=== PATIENT | male | born 1935 | race Hispanic/Latino ===

== ENCOUNTER 2020-12-25 11:48 | Inpatient (IN) | payer MEDICARE ==
[~2020-12-25] VITALS: Ht 167.6 cm; Wt 95.3 kg
[2020-12-25 12:53] LABS: BASOPHILS % 0.4 % (0.0-1.0); EOSINOPHILS % 0.3 % (0.0-6.0); HEMATOCRIT 44.4 % (38.2-49.6); HEMOGLOBIN 14.5 g/dL (14.0-18.0); LYMPHOCYTES # (AUTO) 1.4 (1.0-3.2); LYMPHOCYTES % 18.6 % (18.0-39.1); MEAN CORPUSCULAR HEMOGLOBIN 29.8 pg (28-32); MEAN CORPUSCULAR HGB CONC 32.7 g/dL (31-35); MEAN CORPUSCULAR VOLUME 91.4 fL (81-99); MONOCYTES # (AUTO) 0.5 (0.2-0.8); NEUTROPHILS # (AUTO) 5.6 (2.1-6.9); NEUTROPHILS % 74.3 % (38.7-80.0); PLATELET COUNT 207 x10e3/uL (140-360); RED BLOOD COUNT 4.86 x10e6/uL (4.3-5.7); RED CELL DISTRIBUTION WIDTH 14.7 % (11.7-14.4)
[2020-12-25] MEDS ORDERED: DILTIAZEM HCL 5 MG/ML 5 ML VIAL IV STA ×4 (13:10→16:18)
[2020-12-25] MEDS ORDERED: DIGOXIN INJ 0.25 MG/ML 2 ML AMP IV ONE (13:15)
[2020-12-25 13:17] LABS: ALBUMIN 3.3 g/dL (3.5-5.0); ALBUMIN/GLOBULIN RATIO 0.8 (0.8-2.0); ANION GAP 15.9 mmol/L (8-16); CALCIUM 8.4 mg/dL (8.4-10.2); CREATININE, SERUM 1.52 mg/dL (0.72-1.25); POTASSIUM 3.9 mmol/L (3.5-5.1)
[2020-12-25 13:24] LABS: CREATINE KINASE MB 2.5 ng/mL (0-5.0)
[2020-12-25] MEDS ORDERED: SODIUM CHLORIDE 0.9% 50ML 50 ML ONE (13:43)
[2020-12-25] MEDS ORDERED: IOPAMIDOL 370 MG/ML 200 ML INFUS..BTL INJ ONE (13:43)
[2020-12-25] MEDS ORDERED: ENOXAPARIN SODIUM INJ 100 MG/ML SYR SC SCH (16:00)
[2020-12-25] MEDS: FUROSEMIDE INJ 10 MG/ML 4 ML VIAL IV SCH (16:34)
[2020-12-25] MEDS ORDERED: CLONIDINE HCL 0.2 MG TAB PO PRN (17:15)
[2020-12-25 17:36] VITALS: BP 168/113
[2020-12-25] MEDS: CARVEDILOL 12.5 MG TAB PO SCH (17:46)
[2020-12-25 20:00] VITALS: BP 141/76
[2020-12-25 20:48] VITALS: BP 128/102
[2020-12-25] MEDS ORDERED: TEMAZEPAM 15 MG CAP PO PRN (21:00)
[2020-12-25 21:04] LABS: CREATINE KINASE MB 3.3 ng/mL (0-5.0)
[2020-12-26] MEDS: FUROSEMIDE INJ 10 MG/ML 4 ML VIAL IV SCH ×2 (05:11→18:00)
[2020-12-26 07:04] LABS: BASOPHILS % 0.4 % (0.0-1.0); EOSINOPHILS # (AUTO) 0.1 (0.0-0.4); EOSINOPHILS % 1.3 % (0.0-6.0); HEMATOCRIT 40.3 % (38.2-49.6); HEMOGLOBIN 13.3 g/dL (14.0-18.0); LYMPHOCYTES # (AUTO) 1.3 (1.0-3.2); LYMPHOCYTES % 23.7 % (18.0-39.1); MEAN CORPUSCULAR HEMOGLOBIN 29.8 pg (28-32); MEAN CORPUSCULAR VOLUME 90.2 fL (81-99); MONOCYTES # (AUTO) 0.4 (0.2-0.8); MONOCYTES % 6.7 % (4.4-11.3); NEUTROPHILS # (AUTO) 3.6 (2.1-6.9); NEUTROPHILS % 67.5 % (38.7-80.0); PLATELET COUNT 174 x10e3/uL (140-360); RED BLOOD COUNT 4.47 x10e6/uL (4.3-5.7); RED CELL DISTRIBUTION WIDTH 14.6 % (11.7-14.4)
[2020-12-26 07:35] LABS: ALBUMIN/GLOBULIN RATIO 0.9 (0.8-2.0); ANION GAP 15.4 mmol/L (8-16); CALCIUM 7.7 mg/dL (8.4-10.2); POTASSIUM 3.4 mmol/L (3.5-5.1)
[2020-12-26 07:46] VITALS: BP 115/91
[2020-12-26 07:46] LABS: CREATININE, SERUM 1.56 mg/dL (0.72-1.25)
[2020-12-26 08:00] VITALS: BP 115/91
[2020-12-26 08:18] LABS: CREATINE KINASE MB 3.1 ng/mL (0-5.0)
[2020-12-26] MEDS: ENOXAPARIN SODIUM INJ 100 MG/ML SYR SC SCH (09:22)
[2020-12-26] MEDS: CARVEDILOL 12.5 MG TAB PO SCH ×2 (09:22→20:23)
[2020-12-26] MEDS ORDERED: ACETAMINOPHEN 325 MG TAB PO PRN (10:45)
[2020-12-26] MEDS ORDERED: POTASSIUM CHLORIDE 20 MEQ TAB CR PO ONE (11:00)
[2020-12-26 11:38] VITALS: BP 102/80
[2020-12-26 15:52] VITALS: BP 108/80
[2020-12-26 19:44] LABS: ANION GAP 19.7 mmol/L (8-16); CALCIUM 7.9 mg/dL (8.4-10.2); CREATININE, SERUM 1.74 mg/dL (0.72-1.25); POTASSIUM 3.7 mmol/L (3.5-5.1)
[2020-12-26 20:00] VITALS: BP_SYST 101; BP_SYST 124; BP_DIAS 76; BP_DIAS 87
[2020-12-27 04:00] VITALS: BP 111/86
[2020-12-27] MEDS: FUROSEMIDE INJ 10 MG/ML 4 ML VIAL IV SCH ×2 (05:27→17:19)
[2020-12-27 06:53] LABS: ALBUMIN 2.9 g/dL (3.5-5.0); ALBUMIN/GLOBULIN RATIO 0.8 (0.8-2.0); ANION GAP 16.2 mmol/L (8-16); CHOL/HDL RATIO 5.3 (3.9-4.7); CREATININE, SERUM 1.55 mg/dL (0.72-1.25); POTASSIUM 3.2 mmol/L (3.5-5.1)
[2020-12-27 07:09] LABS: THYROID STIMULATING HORMONE 1.977 uIU/mL (0.350-4.940)
[2020-12-27] MEDS ORDERED: POTASSIUM CHLORIDE 20 MEQ TAB CR PO ONE ×2 (09:43→10:19)
[2020-12-27] MEDS: ENOXAPARIN SODIUM INJ 100 MG/ML SYR SC SCH (10:27)
[2020-12-27] MEDS: CARVEDILOL 12.5 MG TAB PO SCH ×2 (10:28→21:58)
[2020-12-27 20:00] VITALS: BP 93/64
[2020-12-27 21:56] VITALS: BP 109/77
[2020-12-27 22:00] VITALS: BP 109/77
[2020-12-28] VITALS: BP 104/83
[2020-12-28 04:00] VITALS: BP 116/90
[2020-12-28 05:54] LABS: BASOPHILS % 0.5 % (0.0-1.0); EOSINOPHILS # (AUTO) 0.1 (0.0-0.4); EOSINOPHILS % 1.2 % (0.0-6.0); HEMATOCRIT 41.5 % (38.2-49.6); HEMOGLOBIN 13.9 g/dL (14.0-18.0); LYMPHOCYTES # (AUTO) 1.4 (1.0-3.2); LYMPHOCYTES % 25.3 % (18.0-39.1); MEAN CORPUSCULAR HEMOGLOBIN 29.8 pg (28-32); MEAN CORPUSCULAR HGB CONC 33.5 g/dL (31-35); MEAN CORPUSCULAR VOLUME 89.1 fL (81-99); MONOCYTES # (AUTO) 0.4 (0.2-0.8); MONOCYTES % 7.1 % (4.4-11.3); NEUTROPHILS # (AUTO) 3.7 (2.1-6.9); NEUTROPHILS % 65.5 % (38.7-80.0); PLATELET COUNT 164 x10e3/uL (140-360); RED BLOOD COUNT 4.66 x10e6/uL (4.3-5.7); RED CELL DISTRIBUTION WIDTH 14.3 % (11.7-14.4)
[2020-12-28 06:13] LABS: ANION GAP 14.3 mmol/L (8-16); CALCIUM 7.6 mg/dL (8.4-10.2); CREATININE, SERUM 1.46 mg/dL (0.72-1.25); POTASSIUM 3.3 mmol/L (3.5-5.1)
[2020-12-28] MEDS: FUROSEMIDE INJ 10 MG/ML 4 ML VIAL IV SCH (06:24)
[2020-12-28 07:50] VITALS: BP 113/87
[2020-12-28 08:00] VITALS: BP 113/87
[2020-12-28] MEDS: ENOXAPARIN SODIUM INJ 100 MG/ML SYR SC SCH (08:53)
[2020-12-28] MEDS: CARVEDILOL 12.5 MG TAB PO SCH (08:53)
[2020-12-28] MEDS ORDERED: POTASSIUM CHLORIDE 20 MEQ TAB CR PO ONE (09:59)
[2020-12-28 11:17] VITALS: BP 109/78
[2020-12-28 12:54] LABS: ANION GAP 14.7 mmol/L (8-16); CALCIUM 7.9 mg/dL (8.4-10.2); CREATININE, SERUM 1.47 mg/dL (0.72-1.25); POTASSIUM 3.7 mmol/L (3.5-5.1)
[2020-12-28 15:37] VITALS: BP 123/91
[2020-12-28] MEDS ORDERED: FUROSEMIDE40 MG PO (16:14)
[2020-12-28] MEDS ORDERED: K DUR10 MEQ PO (16:14)
[2020-12-28] MEDS ORDERED: XARELTO15 MG PO (16:14)
[2020-12-28] MEDS ORDERED: XARELTO10 MG PO (16:14)
[2020-12-28] MEDS ORDERED: COREG12.5 MG PO (16:14)
[2020-12-28] MEDS ORDERED: RIVAROXABAN 15 MG TABLET PO SCH (17:00)
[2020-12-28] MEDS ORDERED: FUROSEMIDE 40 MG TAB PO SCH (18:00)
[2020-12-29] MEDS ORDERED: POTASSIUM CHLORIDE 10MEQ EA PO SCH (09:00)
[2021-01-18] MEDS ORDERED: RIVAROXABAN 20 MG TABLET PO SCH (17:00)
== END 2020-12-28 18:48 | disposition home or self-care (01) | DRG 175 ==
LOC: ER 12:22 → ERHOLD 15:43 → MED/SURG3 16:49
PROVIDERS: ADMIT Internal Medicine; ATTEND Internal Medicine
DX: I26.99 Other pulmonary embolism without acute cor pulmonale (principal); I50.23 Acute on chronic systolic (congestive) heart failure; I13.0 Hypertensive heart and chronic kidney disease with heart failure and stage 1 through stage 4 chronic kidney disease, or unspecified chronic kidney disease; I48.20 Chronic atrial fibrillation, unspecified; Z20.822 Contact with and (suspected) exposure to COVID-19; E66.01 Morbid (severe) obesity due to excess calories; I34.0 Nonrheumatic mitral (valve) insufficiency; N18.32 Chronic kidney disease, stage 3b; E87.6 Hypokalemia; T50.B95A Adverse effect of other viral vaccines, initial encounter; Z68.33 Body mass index [BMI] 33.0-33.9, adult
CPT/HCPCS: 36415; 71260; 76770; 80048; 80053; 80061; 82550; 82553; 83735; 83880; 84443; 84484; 85025; 93005; 93306; 93970; 99251; 99284; J1160; J1650; J1940; Q9967; U0002

== ENCOUNTER → 2021-01-22 | Outpatient (CLI) | payer MEDICARE ==
[~2021-01-22] MED LIST: COREG12.5 MG PO; FUROSEMIDE40 MG PO; K DUR10 MEQ PO; XARELTO10 MG PO; XARELTO15 MG PO
== END ==
LOC: RAD 12:02
PROVIDERS: ATTEND Internal Medicine
DX: R06.02 Shortness of breath (principal); R06.2 Wheezing
CPT/HCPCS: 71046

== ENCOUNTER 2021-11-26 14:23 | Inpatient (IN) | payer MEDICARE ==
[~2021-11-26] VITALS: Ht 167.6 cm; Wt 95.3 kg
[2021-11-26] MEDS ORDERED: FUROSEMIDE INJ 10 MG/ML 4 ML VIAL IV ONE (14:45)
[2021-11-26] MEDS ORDERED: ASPIRIN 81 MG CHEW TAB PO ONE ×2 (14:45→16:45)
[2021-11-26 15:07] LABS: BASOPHILS % 0.4 % (0.0-1.0); EOSINOPHILS % 0.3 % (0.0-6.0); HEMATOCRIT 42.8 % (38.2-49.6); LYMPHOCYTES # (AUTO) 1.4 (1.0-3.2); LYMPHOCYTES % 19.1 % (18.0-39.1); MEAN CORPUSCULAR HEMOGLOBIN 31.1 pg (28-32); MEAN CORPUSCULAR HGB CONC 32.7 g/dL (31-35); MEAN CORPUSCULAR VOLUME 95.1 fL (81-99); MONOCYTES # (AUTO) 0.5 (0.2-0.8); MONOCYTES % 6.4 % (4.4-11.3); NEUTROPHILS # (AUTO) 5.3 (2.1-6.9); NEUTROPHILS % 73.4 % (38.7-80.0); PLATELET COUNT 205 x10e3/uL (140-360); RED CELL DISTRIBUTION WIDTH 16.3 % (11.7-14.4)
[2021-11-26 15:17] LABS: INR 1.06; PROTHROMBIN TIME 14.8 seconds (11.9-14.5)
[2021-11-26 15:27] LABS: ALBUMIN 3.1 g/dL (3.5-5.0); ALBUMIN/GLOBULIN RATIO 0.8 (0.8-2.0); ANION GAP 16.2 mmol/L (8-16); CREATININE, SERUM 1.54 mg/dL (0.72-1.25); POTASSIUM 4.2 mmol/L (3.5-5.1)
[2021-11-26 15:33] LABS: CREATINE KINASE MB 2.2 ng/mL (0-5.0)
[2021-11-26] MEDS ORDERED: ONDANSETRON HCL INJ 2MG/ML 2ML 2 MG/ML VIAL IV PRN (16:45)
[2021-11-26] MEDS ORDERED: SODIUM CHLORIDE FLUSH 10 ML SYR INJ PRN (16:45)
[2021-11-26 21:30] VITALS: BP_SYST 144; BP_SYST 159; BP_DIAS 100; BP_DIAS 105
[2021-11-27] VITALS (7 sets, daily range): BP systolic 125–148; BP diastolic 86–103
[2021-11-27 01:39] LABS: CREATINE KINASE MB 1.7 ng/mL (0-5.0)
[2021-11-27 05:33] LABS: BASOPHILS % 0.5 % (0.0-1.0); EOSINOPHILS % 0.6 % (0.0-6.0); HEMOGLOBIN 13.6 g/dL (14.0-18.0); LYMPHOCYTES # (AUTO) 1.5 (1.0-3.2); LYMPHOCYTES % 23.3 % (18.0-39.1); MEAN CORPUSCULAR HEMOGLOBIN 30.4 pg (28-32); MEAN CORPUSCULAR HGB CONC 31.6 g/dL (31-35); MONOCYTES # (AUTO) 0.5 (0.2-0.8); MONOCYTES % 8.1 % (4.4-11.3); NEUTROPHILS # (AUTO) 4.3 (2.1-6.9); NEUTROPHILS % 67.2 % (38.7-80.0); PLATELET COUNT 177 x10e3/uL (140-360); RED BLOOD COUNT 4.48 x10e6/uL (4.3-5.7); RED CELL DISTRIBUTION WIDTH 16.3 % (11.7-14.4)
[2021-11-27 05:45] LABS: ANION GAP 15.8 mmol/L (8-16); CALCIUM 8.7 mg/dL (8.4-10.2); CREATININE, SERUM 1.47 mg/dL (0.72-1.25); POTASSIUM 3.8 mmol/L (3.5-5.1)
[2021-11-27] MEDS ORDERED: ONDANSETRON HCL 4 MG ORAL DISINTEGRATING TAB PO PRN (07:00)
[2021-11-27 09:09] LABS: CREATINE KINASE MB 2.2 ng/mL (0-5.0)
[2021-11-27] MEDS: FUROSEMIDE INJ 10 MG/ML 4 ML VIAL IV SCH (09:52)
[2021-11-27] MEDS: CARVEDILOL 3.125 MG TAB PO SCH ×2 (09:52→17:23)
[2021-11-27] MEDS: RIVAROXABAN 20 MG TABLET PO SCH (17:23)
[2021-11-28] VITALS (7 sets, daily range): BP systolic 114–140; BP diastolic 81–97
[2021-11-28 07:14] LABS: HEMATOCRIT 40.5 % (38.2-49.6); HEMOGLOBIN 13.2 g/dL (14.0-18.0); MEAN CORPUSCULAR HEMOGLOBIN 30.9 pg (28-32); MEAN CORPUSCULAR HGB CONC 32.6 g/dL (31-35); MEAN CORPUSCULAR VOLUME 94.8 fL (81-99); PLATELET COUNT 147 x10e3/uL (140-360); RED BLOOD COUNT 4.27 x10e6/uL (4.3-5.7); RED CELL DISTRIBUTION WIDTH 15.9 % (11.7-14.4)
[2021-11-28 07:39] LABS: ANION GAP 13.5 mmol/L (8-16); CALCIUM 8.3 mg/dL (8.4-10.2); CREATININE, SERUM 1.4 mg/dL (0.72-1.25); POTASSIUM 3.5 mmol/L (3.5-5.1)
[2021-11-28] MEDS: CARVEDILOL 3.125 MG TAB PO SCH ×2 (09:07→17:28)
[2021-11-28] MEDS: FUROSEMIDE INJ 10 MG/ML 4 ML VIAL IV SCH (09:07)
[2021-11-28 12:01] LABS: EOSINOPHILS % (MANUAL) 3 % (0-7); LYMPHOCYTES % (MANUAL) 16 % (19-48); MONOCYTES % (MANUAL) 4 % (3.4-9.0); NEUTROPHILS % (MANUAL) 77 % (40-74); PLATELET ESTIMATE SLIGHTLY DECREASED; PLATELET MORPHOLOGY COMMENT NORMAL; RBC MORPHOLOGY COMMENT NORMAL
[2021-11-28] MEDS: RIVAROXABAN 20 MG TABLET PO SCH (17:28)
[2021-11-29] VITALS (7 sets, daily range): BP systolic 92–144; BP diastolic 60–93
[2021-11-29 06:15] LABS: BASOPHILS % 0.5 % (0.0-1.0); EOSINOPHILS # (AUTO) 0.1 (0.0-0.4); EOSINOPHILS % 1.9 % (0.0-6.0); HEMATOCRIT 41.3 % (38.2-49.6); HEMOGLOBIN 13.6 g/dL (14.0-18.0); LYMPHOCYTES # (AUTO) 1.3 (1.0-3.2); LYMPHOCYTES % 21.3 % (18.0-39.1); MEAN CORPUSCULAR HEMOGLOBIN 31.2 pg (28-32); MEAN CORPUSCULAR HGB CONC 32.9 g/dL (31-35); MEAN CORPUSCULAR VOLUME 94.7 fL (81-99); MONOCYTES # (AUTO) 0.5 (0.2-0.8); MONOCYTES % 8.7 % (4.4-11.3); NEUTROPHILS % 67.3 % (38.7-80.0); PLATELET COUNT 159 x10e3/uL (140-360); RED BLOOD COUNT 4.36 x10e6/uL (4.3-5.7); RED CELL DISTRIBUTION WIDTH 15.6 % (11.7-14.4)
[2021-11-29 06:46] LABS: CALCIUM 7.9 mg/dL (8.4-10.2); CREATININE, SERUM 1.22 mg/dL (0.72-1.25); MAGNESIUM 2.1 MG/DL (1.3-2.1)
[2021-11-29] MEDS: DOCUSATE SODIUM 100 MG CAP PO SCH (09:00)
[2021-11-29] MEDS: SENNOSIDES 8.6 MG TAB PO SCH (09:00)
[2021-11-29] MEDS: CARVEDILOL 3.125 MG TAB PO SCH ×2 (09:07→17:00)
[2021-11-29] MEDS: FUROSEMIDE INJ 10 MG/ML 4 ML VIAL IV SCH (09:07)
[2021-11-29] MEDS ORDERED: POTASSIUM CHLORIDE 20 MEQ TAB CR PO NR (09:40)
[2021-11-29] MEDS ORDERED: POTASSIUM CHLORIDE 20 MEQ TAB CR PO ONE (11:30)
[2021-11-29 15:25] LABS: ANION GAP 13.9 mmol/L (8-16); CALCIUM 7.8 mg/dL (8.4-10.2); CREATININE, SERUM 1.28 mg/dL (0.72-1.25); POTASSIUM 3.9 mmol/L (3.5-5.1)
[2021-11-29] MEDS: RIVAROXABAN 20 MG TABLET PO SCH (17:02)
[2021-11-29] MEDS ORDERED: FUROSEMIDE40 MG PO (18:52)
[2021-11-29] MEDS ORDERED: K DUR10 MEQ PO (18:52)
[2021-11-29] MEDS ORDERED: XARELTO20 MG PO (18:52)
[2021-11-29] MEDS ORDERED: CARVEDILOL6.25 MG PO (18:52)
[2021-11-30] VITALS: BP 130/95
[2021-11-30 04:00] VITALS: BP 118/78
[2021-11-30 06:03] LABS: BASOPHILS % 0.7 % (0.0-1.0); EOSINOPHILS # (AUTO) 0.1 (0.0-0.4); EOSINOPHILS % 1.8 % (0.0-6.0); HEMATOCRIT 42.5 % (38.2-49.6); HEMOGLOBIN 13.9 g/dL (14.0-18.0); LYMPHOCYTES # (AUTO) 1.6 (1.0-3.2); LYMPHOCYTES % 25.7 % (18.0-39.1); MEAN CORPUSCULAR HEMOGLOBIN 30.8 pg (28-32); MEAN CORPUSCULAR HGB CONC 32.7 g/dL (31-35); MONOCYTES # (AUTO) 0.5 (0.2-0.8); MONOCYTES % 7.9 % (4.4-11.3); NEUTROPHILS # (AUTO) 3.9 (2.1-6.9); NEUTROPHILS % 63.6 % (38.7-80.0); PLATELET COUNT 172 x10e3/uL (140-360); RED BLOOD COUNT 4.52 x10e6/uL (4.3-5.7); RED CELL DISTRIBUTION WIDTH 15.9 % (11.7-14.4)
[2021-11-30 06:30] LABS: CALCIUM 8.2 mg/dL (8.4-10.2); CREATININE, SERUM 1.15 mg/dL (0.72-1.25); MAGNESIUM 2.2 MG/DL (1.3-2.1)
[2021-11-30 08:00] VITALS: BP 128/89
[2021-11-30] MEDS: FUROSEMIDE INJ 10 MG/ML 4 ML VIAL IV SCH (08:28)
[2021-11-30] MEDS: DOCUSATE SODIUM 100 MG CAP PO SCH (08:28)
[2021-11-30] MEDS: SENNOSIDES 8.6 MG TAB PO SCH (08:28)
[2021-11-30] MEDS: CARVEDILOL 3.125 MG TAB PO SCH (08:28)
== END 2021-11-30 09:35 | disposition home or self-care (01) | DRG 291 ==
LOC: ER 14:26 → ERHOLD 16:35 → MED/SURG2 21:10
PROVIDERS: ADMIT Internal Medicine; ATTEND Internal Medicine
DX: I13.0 Hypertensive heart and chronic kidney disease with heart failure and stage 1 through stage 4 chronic kidney disease, or unspecified chronic kidney disease (principal); I50.23 Acute on chronic systolic (congestive) heart failure; I48.19 Other persistent atrial fibrillation; N18.31 Chronic kidney disease, stage 3a; Z86.711 Personal history of pulmonary embolism; Z79.01 Long term (current) use of anticoagulants; E66.9 Obesity, unspecified; Z68.33 Body mass index [BMI] 33.0-33.9, adult; Z20.822 Contact with and (suspected) exposure to COVID-19
CPT/HCPCS: 36415; 71045; 80048; 80053; 82550; 82553; 83735; 83880; 84484; 85007; 85025; 85027; 85610; 93005; 93306; 93970; 94799; 97139; 99284; J1940; U0002